=== PATIENT | female | born 1975 | race Caucasian/White ===

== ENCOUNTER 2016-11-11 10:29 | Day surgery (SDC) | payer BC ==
--- NOTE | ~2016-11-11 | EGD ---
EGD REPORT [facility] [address] [id number] NAME: ADRY PERDUE : [birth year] STATUS : REG [facility]#: [id number] AGE: 41 ADM/REG DATE : 11/11/16 MR#: [id number] REPORT SERV DATE: 11/11/16 DICTATED BY: DATE: REPORT STATUS : Draft TRANSCRIBED BY: [employer] DATE: 11/11/16 [facility] Patient Name: Adry Perdue Date of : 1975 Attending MD: MANOJ LEONE MD Procedure Date No Time: 11/11/2016 Procedure: Upper GI endoscopy Indications: Generalized abdominal pain, Positive celiac serologies Referring MD: TEDDY SCHMITT JR. Medicines: Monitored Anesthesia Care Complications: No immediate complications. Procedure: Pre-Anesthesia Assessment: - ASA Grade Assessment: III - A patient with severe systemic disease. After obtaining informed consent, the endoscope was passed under direct vision. Throughout the procedure, the patient's blood pressure, pulse, and oxygen saturations were monitored continuously. The GIF H190 [id number] was introduced through the mouth, and advanced to the third part of duodenum. The upper GI endoscopy was accomplished without difficulty. The patient tolerated the procedure well. Findings: The examined esophagus was normal. The Z-line was regular and was found 35 cm from the incisors. There is no endoscopic evidence of Panda's esophagus, areas of erosion, hiatus hernia, ulcerations or varices in the entire esophagus. The entire examined stomach was normal. Biopsies were taken with a cold forceps for histology. There is no endoscopic evidence of erythema, mucosal abnormalities, ulceration or varices in the entire examined stomach. The examined duodenum was normal. Biopsies were taken with a cold forceps for evaluation of celiac disease. There is no endoscopic evidence of mucosal abnormalities, stenosis or ulceration in the entire examined duodenum. The cardia and gastric fundus were normal on retroflexion. Impression: - Normal esophagus. - Z-line regular, 35 cm from the incisors. - Normal stomach. Biopsied. - Normal examined duodenum. Biopsied. Recommendation: - Patient has a contact number available for emergencies. The signs and symptoms of potential delayed EGD REPORT [address] [address] NAME: ADRY PERDUE : [birth year] STATUS : REG [facility] [place] PAT#: [id number] AGE: 41 ADM/REG DATE : 11/11/16 MR#: [id number] REPORT SERV DATE: 11/11/16 DICTATED BY: DATE: REPORT STATUS : Draft TRANSCRIBED BY: [employer] DATE: 11/11/16 complications were discussed with the patient. Return to normal activities tomorrow. Written discharge instructions were provided to the patient. - Regular diet. - Discharge patient to home. - Continue present medications. - Await pathology results. Procedure Code(s): --- Professional --- 48478, Esophagogastroduodenoscopy, flexible, transoral; with biopsy, single or multiple Diagnosis Code(s): --- Professional --- R10.84, Generalized abdominal pain R76.8, Other specified abnormal immunological findings in serum CPT copyright 2013 [employer]. All rights reserved. The codes documented in this report are preliminary and upon medical biller/coder review may be revised to meet current compliance requirements. MANOJ LEONE MD 11/11/2016 11:33 AM This report has been signed electronically. Number of Addenda: 0 Note Initiated On: 11/11/2016 11:24 AM Scope Withdrawal Time 0 hours 0 minutes 0 seconds [address] [id number]
--- NOTE | ~2016-11-11 | EGD ---
EGD REPORT [facility] [address] [address] NAME: ADRY PERDUE : [birth year] STATUS : REG [facility]#: [id number] AGE: 41 ADM/REG DATE : 11/11/16 MR#: [id number] REPORT SERV DATE: 11/11/16 DICTATED BY: DATE: REPORT STATUS : Draft TRANSCRIBED BY: [employer] DATE: 11/11/16 [facility] Patient Name: Adry Perdue Date of : 1975 Attending MD: MANOJ LEONE MD Procedure Date No Time: 11/11/2016 Procedure: Colonoscopy Indications: Abdominal pain, Clinically significant diarrhea of unexplained origin Referring MD: TEDDY SCHMITT JR. Medicines: Monitored Anesthesia Care Complications: No immediate complications. Procedure: Pre-Anesthesia Assessment: - ASA Grade Assessment: III - A patient with severe systemic disease. After I obtained informed consent, the scope was passed under direct vision. Throughout the procedure, the patient's blood pressure, pulse, and oxygen saturations were monitored continuously. The PCF [id number] was introduced through the anus and advanced to 10 cm into the ileum. The colonoscopy was performed without difficulty. The patient tolerated the procedure well. The quality of the bowel preparation was good. Findings: The perianal and digital rectal examinations were normal. Multiple small-mouthed diverticula were found in the sigmoid colon and at the hepatic flexure. A sessile polyp was found in the ascending colon. The polyp was diminutive in size. The polyp was removed with a cold biopsy forceps. Resection and retrieval were complete. No other significant abnormalities were identified in a careful examination of the remainder of the colon. There is no endoscopic evidence of erythema, mass, ulcerations or angioectasia in the entire colon. Biopsies were taken with a cold forceps from the entire colon for evaluation of microscopic colitis. The terminal ileum appeared normal. No additional abnormalities were found on retroflexion. Impression: - Diverticulosis in the sigmoid colon and at the hepatic flexure. - One diminutive polyp in the ascending colon. Resected and retrieved. - The examined portion of the ileum was normal. EGD REPORT [address] [address] NAME: ADRY PERDUE : [birth year] STATUS : REG [facility]#: [id number] AGE: 41 ADM/REG DATE : 11/11/16 MR#: [id number] REPORT SERV DATE: 11/11/16 DICTATED BY: DATE: REPORT STATUS : Draft TRANSCRIBED BY: [employer] DATE: 11/11/16 Recommendation: - Patient has a contact number available for emergencies. The signs and symptoms of potential delayed complications were discussed with the patient. Return to normal activities tomorrow. Written discharge instructions were provided to the patient. - High fiber diet. - Discharge patient to home. - Continue present medications. - Await pathology results. - Repeat colonoscopy in 5-10 years for surveillance based on pathology results. - If the pathology report reveals adenomatous tissue, then repeat the colonoscopy for surveillance in 5 years. - If the pathology report reveals no adenomatous tissue, then repeat the colonoscopy for screening purposes in 10 years. Procedure Code(s): --- Professional --- 30387, Colonoscopy, flexible, proximal to splenic flexure; with biopsy, single or multiple Diagnosis Code(s): --- Professional --- K57.30, Diverticulosis of large intestine without perforation or abscess without bleeding D12.2, Benign neoplasm of ascending colon R10.9, Unspecified abdominal pain R19.7, Diarrhea, unspecified CPT copyright 2013 [employer]. All rights reserved. The codes documented in this report are preliminary and upon maitre d' review may be revised to meet current compliance requirements. MANOJ LEONE MD 11/11/2016 11:52 AM This report has been signed electronically. Number of Addenda: 0 Note Initiated On: 11/11/2016 11:19 AM Scope Withdrawal Time 0 hours 7 minutes 56 seconds [address] [id number]
[~2016-11-11 10:29] MED LIST: ASAB PO; BYSTOLIC10 MG PO; BYSTOLIC5 MG PO; IBU-200200 MG PO; IMDUR30 PO; LIPITOR20 PO; LOP25 PO; MAXIMUM D3 PO; PLAVIX PO; PRIN2.5 PO; PROTONIX PO; SYMAX-SL0.125 MG PO; T PO; WELLXL150 PO
== END 2016-11-11 23:59 | disposition home or self-care (01) ==
LOC: DMU 10:29
PROVIDERS: Internal Medicine Gastroenterology
PROC: 0DB68ZX Excision of Stomach, Via Natural or Artificial Opening Endoscopic, Diagnostic (ICD-10-PCS; 2016-11-11)
PROC: 0DBK8ZZ Excision of Ascending Colon, Via Natural or Artificial Opening Endoscopic (ICD-10-PCS; principal; 2016-11-11 12:00)
PROC: 0DB98ZX Excision of Duodenum, Via Natural or Artificial Opening Endoscopic, Diagnostic (ICD-10-PCS; 2016-11-11 12:00)
DX: D12.2 Benign neoplasm of ascending colon (principal); K57.30 Diverticulosis of large intestine without perforation or abscess without bleeding; R19.7 Diarrhea, unspecified; R10.9 Unspecified abdominal pain; R10.84 Generalized abdominal pain; R25.1 Tremor, unspecified; R76.8 Other specified abnormal immunological findings in serum; I10 Essential (primary) hypertension; E89.0 Postprocedural hypothyroidism; M46.86 Other specified inflammatory spondylopathies, lumbar region; F32.9 Major depressive disorder, single episode, unspecified; Z79.82 Long term (current) use of aspirin; Z79.899 Other long term (current) drug therapy; Z90.710 Acquired absence of both cervix and uterus; Z87.891 Personal history of nicotine dependence; Z95.5 Presence of coronary angioplasty implant and graft
CPT/HCPCS: 88305